=== PATIENT | female | born 1995 | race Two or more races ===

== ENCOUNTER 2021-12-03 19:06 | Emergency (ER) | payer SELFPAY ==
[2021-12-03 19:23] VITALS: PULSE 121; RESP 22; TEMP 36.6; O2SAT 99; BMI 41.0
[2021-12-03 19:40] VITALS: BP 153/96
--- NOTE | 2021-12-03 19:48 | ED_ITS ---
HPI - Alcohol General Chief Complaint: ETOH/Substance Use Stated Complaint: ETOH Time Seen by Provider: 12/03/21 19:37 History of Present Illness HPI narrative: Patient is a 26-year-old female with a history of ETOH, found to be high in a bar. With a previous history depression. Per patient is on no medication. Patient was drinking alcohol. Notice be high in a bar. EMS was sent patient was brought emergency department. At the current time patient denies any suicidal ideation. Does however had visible cut melendez in her wrist bilaterally. Related Data Allergies Allergy/AdvReac Type Severity Reaction Status Date / Time No Known Allergies Allergy Verified 12/03/21 19:37 Review of Systems Review of Systems: Patient refused to answer specific review system [facility] Past Medical History Attestation statement: The following information was validated with the patient. Social History Social History Advance Directives: No Physical Exam ED Vital Signs: Vital Signs - 24 hr 12/03/21 19:23 12/03/21 19:40 Temperature 98 F Pulse Rate 121 H Respiratory Rate 22 H Blood Pressure 153/96 H Pulse Oximetry 99 BMI result Body Mass Index 41.0 Appearance: Alert. Oriented X3. No acute distress. Eyes: Pupils equal, round and reactive to light. ENT: Pharynx normal. Neck: Normal inspection. Neck supple. No lymph nodes noted. No crepitus CVS: Normal heart rate and rhythm. Pulses normal. Normal S1 and S2 Respiratory: No respiratory distress. Breath sounds normal. No Wheezing. No rales Abdomen: Soft and nontender. No rigidity. No distention. good BS x4 Skin: Skin warm and dry. Normal skin color. Normal skin turgor. Multiple cut melendez noted of intermediate age in both wrists. Extremities: No lower extremity edema. Neurovascular intact to all extremities. No Lacerations. No Rash Neuro: Oriented X 3. No motor deficit. No sensory deficit. Moving all extermities. No slurred speech. Cranial nerves grossly intact MDM - Alcohol MDM Narrative Medical decision making narrative: Patient awaiting clinical sobriety. Will get labs. Will require psychiatric evaluation Patient now clinically sober awaiting final disposition as per crisis. Lab Data Result diagrams: 12/03/21 19:57 12/03/21 19:57 Labs: Lab Results 12/03/21 12/03/21 12/03/21 Range/Units 19:57 19:57 19:57 WBC 9.0 (4.8-10.8) X10*3/uL RBC 4.98 (4.20-5.50) X10*6/uL Hgb 12.6 (12.0-16.0) g/dl Hct 39.5 (37.0-47.0) % MCV 79.3 L (80.0-98.0) fL MCH 25.3 L (27.0-33.0) pg MCHC 31.9 (31.0-35.0) g/dl RDW 14.7 (11.0-16.0) % Plt Count 384 (160-400) X10*3/uL MPV 9.1 L (9.4-12.3) fL Immature Gran % (Auto) 0.2 (0.0-0.4) % Neut % (Auto) 60.1 (45-73) % Lymph % (Auto) 34.6 (20-40) % [place] % (Auto) 4.1 (2-11) % Eos % (Auto) 0.4 (0-4) % Baso % (Auto) 0.6 (0-2) % Lymph # (Auto) 3.1 (1.2-4.9) X10*3/uL [place] # (Auto) 0.4 (0.1-1.2) X10*3/uL Eos # (Auto) 0.0 (0.0-0.4) X10*3/uL Baso # (Auto) 0.1 (0.0-0.2) X10*3/uL Abs Immat Gran (auto) 0.02 (0.00-0.03) X10*3/uL Absolute Neuts (auto) 5.4 (2.0-8.3) x10*3/uL Absolute Nucleated RBC 0.000 (0.0-0.012) X10*3/uL Nucleated RBC % (auto) 0.0 (0.0-0.2) /100WBC Sodium 141 (135-145) mmol/L Potassium 3.7 (3.3-5.1) mmol/L Chloride 111 H (96-108) mmol/L Carbon Dioxide 19 L (22-29) mmol/L Anion Gap 15 (12-20) BUN 10 (9-16) mg/dL Creatinine 0.78 (0.5-1.4) mg/dL Estim Creat Clear Calc 152.0 Estimated GFR > 60 Random Glucose 105 (60-115) mg/dL Calcium 9.6 (8.4-10.2) mg/dL Total Bilirubin 0.4 (0.0-1.0) mg/dL Direct Bilirubin 0.2 (0.0-0.5) mg/dL AST 131 H (5-31) U/L ALT 105 H (0-31) U/L Alkaline Phosphatase 69 (39-117) U/L Total Protein 8.0 (6.5-8.0) g/dL Albumin 4.7 (3.5-5.0) g/dL Beta HCG, Quant < 2 mIU/mL Ethyl Alcohol 255 mg/dL COVID-19 ([facility]) (Negative) COVID-19 Clin Com 12/03/21 Range/Units 23:46 WBC (4.8-10.8) X10*3/uL RBC (4.20-5.50) X10*6/uL Hgb (12.0-16.0) g/dl Hct (37.0-47.0) % MCV (80.0-98.0) fL MCH (27.0-33.0) pg MCHC (31.0-35.0) g/dl RDW (11.0-16.0) % Plt Count (160-400) X10*3/uL MPV (9.4-12.3) fL Immature Gran % (Auto) (0.0-0.4) % Neut % (Auto) (45-73) % Lymph % (Auto) (20-40) % [place] % (Auto) (2-11) % Eos % (Auto) (0-4) % Baso % (Auto) (0-2) % Lymph # (Auto) (1.2-4.9) X10*3/uL [place] # (Auto) (0.1-1.2) X10*3/uL Eos # (Auto) (0.0-0.4) X10*3/uL Baso # (Auto) (0.0-0.2) X10*3/uL Abs Immat Gran (auto) (0.00-0.03) X10*3/uL Absolute Neuts (auto) (2.0-8.3) x10*3/uL Absolute Nucleated RBC (0.0-0.012) X10*3/uL Nucleated RBC % (auto) (0.0-0.2) /100WBC Sodium (135-145) mmol/L Potassium (3.3-5.1) mmol/L Chloride (96-108) mmol/L Carbon Dioxide (22-29) mmol/L Anion Gap (12-20) BUN (9-16) mg/dL Creatinine (0.5-1.4) mg/dL Estim Creat Clear Calc Estimated GFR Random Glucose (60-115) mg/dL Calcium (8.4-10.2) mg/dL Total Bilirubin (0.0-1.0) mg/dL Direct Bilirubin (0.0-0.5) mg/dL AST (5-31) U/L ALT (0-31) U/L Alkaline Phosphatase (39-117) U/L Total Protein (6.5-8.0) g/dL Albumin (3.5-5.0) g/dL Beta HCG, Quant mIU/mL Ethyl Alcohol mg/dL COVID-19 ([facility]) Negative (Negative) COVID-19 Clin Com See Note Discharge Plan Discharge Clinical Impression: Alcoholic intoxication, Suicidal ideation Patient Disposition: Still a Patient
[2021-12-03 20:06] LABS: MANUAL DIFF FLAG NO
[2021-12-03 20:07] LABS: Basophils Absolute Auto 0.1 X10*3/uL (0.0-0.2); Basophils Percent Auto 0.6 % (0-2); Eosinophils Percent Auto 0.4 % (0-4); Hematocrit 39.5 % (37.0-47.0); Hemoglobin 12.6 g/dl (12.0-16.0); Imm Gran Abs Auto 0.02 X10*3/uL (0.00-0.03); Imm Gran Pct Auto 0.2 % (0.0-0.4); Lymphocytes Absolute Auto 3.1 X10*3/uL (1.2-4.9); Lymphocytes Percent Auto 34.6 % (20-40); Mean Corpuscular HGB Conc 31.9 g/dl (31.0-35.0); Mean Corpuscular Hemoglobin 25.3 pg (27.0-33.0); Mean Corpuscular Volume 79.3 fL (80.0-98.0); Mean Platelet Volume 9.1 fL (9.4-12.3); Monocytes Absolute Auto 0.4 X10*3/uL (0.1-1.2); Monocytes Percent Auto 4.1 % (2-11); Neutrophils Absolute Auto 5.4 x10*3/uL (2.0-8.3); Neutrophils Percent Auto 60.1 % (45-73); Platelet Count 384 X10*3/uL (160-400); Red Blood Count 4.98 X10*6/uL (4.20-5.50); Red Cell Distribution Width 14.7 % (11.0-16.0)
[2021-12-03 20:22] LABS: Ethanol 255 mg/dL
[2021-12-03 20:25] LABS: Alanine Aminotransferase 105 U/L (0-31); Albumin Level 4.7 g/dL (3.5-5.0); Alkaline Phosphatase 69 U/L (39-117); Anion Gap 15 (12-20); Aspartate Amino Transferase 131 U/L (5-31); Bilirubin Direct 0.2 mg/dL (0.0-0.5); Bilirubin Total 0.4 mg/dL (0.0-1.0); Blood Urea Nitrogen 10 mg/dL (9-16); Calcium 9.6 mg/dL (8.4-10.2); Carbon Dioxide 19 mmol/L (22-29); Chloride 111 mmol/L (96-108); Estimated Glomerular Filt Rate > 60; Glucose Random 105 mg/dL (60-115); Potassium 3.7 mmol/L (3.3-5.1); Sodium 141 mmol/L (135-145)
[2021-12-03 20:31] LABS: HCG Quantitative < 2 mIU/mL
--- NOTE | 2021-12-03 21:56 | PC.NURSE ---
EMS left before giving report about patient. [facility] [place] [place] attempted to reach out to [facility] for report but they did not give a report.
--- NOTE | 2021-12-03 22:53 | MHC.CARE ---
CARE team contacted by ED nurse re: concern that the pt is not safe for discharge and ED physician request for CARE team to meet with the pt, as the doctor is not comfortable with the pt discharging without assessment. CARE team informed the nurse that pt cannot be seen at this time and if the physician has significant concerns for the pt's safety that he can sign a Sect 12a to hold the pt pending evaluation. Chart review- pt's BAL was 255 at 1957, pt will not be clinically appropriate for assessment until 1am.
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
[2021-12-04 00:08] LABS: COVID-19 Test Negative (Negative); IDNOW Serial# 9DB6401D
[2021-12-04 03:36] LABS: Appearance Urine CLEAR; Color Urine YELLOW; Glucose Urine UA NEG (NEG); Leukocyte Esterase Urine NEG (NEG); Nitrite Urine NEG (NEG); Specific Gravity - Urine 1.025 (1.005-1.025); Urine Blood NEG (NEG); Urine Ketones NEG (NEG); Urine Protein NEG (NEG-TRACE)
[2021-12-04 03:46] LABS: Amphetamine Screen Urine Not Detected (Not Detect); Barbiturates, Urine Not Detected (Not Detect); Benzodiazepines Screen Urine Not Detected (Not Detect); Cannabinoid Screen Urine POSITIVE (Not Detect); Cocaine Screen Urine Not Detected (Not Detect); Fentanyl, urine Not Detected (Not Detect); Opiate Screen Urine Not Detected (Not Detect); Phencyclidine Screen Urine Not Detected (Not Detect)
--- NOTE | 2021-12-04 06:18 | PC.NURSE ---
Patient slept though the night, up times x 1, provided urine sample requested discharge, patient sectioned by Provider due to history of self cut, [facility] referral completed/confirmed/pending ETA, currently not on any medication, [place] by nationality, VSS, will continue to monitor.
--- NOTE | 2021-12-04 07:27 | MHC.CARE ---
Today, Pt presents as alert, orientated and engaged. Pt denies current SI/HI/VH/AH. Pt reports no history of SA or gestures. Pt reports she engages in NSSIB; superficially cutting as a means of coping. Pt reports she last self harmed last week. Pt reports her drinking is problematic though appears to be minimizing the extent of it. Pt reports drinking alcohol as means to cope with stress. Pt reports 19/ she used alot of drugs and reports currently she only uses alcohol. Pt declines wanting recovery resources at this time. CARE Team and Pt discussed different levels of care. Pt expressed interest in being connected to therapy. Pt is currently uninsured. Pt is agreeable to be connected to financially counseling for [place]. Plan for CARE Team to follow up with Pt in 1-2 days. Pt will be provided with [facility] crisis information.
--- NOTE | 2021-12-08 10:37 | MHC.CARE ---
CARE Team attempted to complete follow up call. No answer.
== END 2021-12-04 07:32 | disposition home or self-care (01) ==
PROVIDERS: Emergency Provider Emergency Medicine Emergency Medical Services
DX: F10.129 Alcohol abuse with intoxication, unspecified (principal); Y90.8 Blood alcohol level of 240 mg/100 ml or more; Z20.822 Contact with and (suspected) exposure to COVID-19; Z79.899 Other long term (current) drug therapy
CPT/HCPCS: 36415; 80048; 80076; 80307; 81003; 82077; 84702; 85025; 87635; 99284